=== PATIENT | male | born 1970 | race Two or more races ===

== ENCOUNTER 2025-10-18 15:35 | Inpatient (IN) | payer MEDICAID, OTHER ==
[~2025-10-18] VITALS: Ht 172.7 cm; Wt 98.4 kg
[2025-10-18 16:19] LABS: Hematocrit 40.7 % (41.0-53.0); Hemoglobin 13.6 g/dL (13.5-17.5); Mean Corpuscular Hemoglobin 27.4 pg (28.0-32.0); Mean Corpuscular Volume 82.4 fL (80.0-100.0); Nucleated Red Blood Cells % 0.1 %
[2025-10-18 16:23] LABS: Chloride 102 mmol/L (98-107); Potassium 4.3 mmol/L (3.5-5.1); Sodium 137 mmol/L (136-145)
[2025-10-18 16:24] LABS: Anion Gap 10 (5-15); Calcium 10.0 mg/dL (8.7-10.4); Carbon Dioxide 25 mmol/L (20-31)
[2025-10-18 16:29] LABS: BUN/Creatinine Ratio 17.3 (10.0-20.0)
[2025-10-18 16:31] LABS: Urine Protein, UAD Negative (Negative)
[2025-10-18 16:31] LABS: Blood Urea Nitrogen 23 mg/dL (9-23); Glucose 299 mg/dL (74-106)
--- NOTE | 2025-10-18 16:45 | ED.PDOC ---
HPI (NEURO) HPI Comments 85-year-old male with a primary history of hypertension and CVA (1 month ago), presents to the ED for chief complaint dizziness associated with blurred vision that started 30 minutes prior to ER arrival. Patient reports that he was playing with his granddaughter when his vision became blurred. Upon ED arrival, patient is blood pressure 191/123. He denies any nausea, vomiting, fever, chills, chest pain, or shortness of breath. Patient took his blood pressure medication around 3:00 p.m. today. Patient has no new onset of focal deficit, or difficulty ambulating. Patient is alert and oriented x4 does have some slurred speech given recent CVA. Chief Complaint: Dizziness Time Seen by MD: 16:29 Reviewed Notes: Nurses Notes, Medications, Allergies Information Source: Patient Mode of Arrival: Ambulatory Severity: Moderate Dizziness/Weakness Severity: Does not affect activitie Timing: Hours Duration: Since onset Onset: At rest Circumstances: Spontaneous Symptoms: Change of vision History of: CVA, Hypertension Modifying factors: Nothing Associated Signs and Symptoms: Blurred Vision Past Medical History PAST MEDICAL HISTORY: CVA, HTN Surgical History: Denies all surgeries Family History Family History: Reviewed,noncontributory to illness Social History Smoker: Non-Smoker Alcohol: Denies ETOH Use Drugs: Denies Drug Use Lives In: Home Constitutional: denies: chills, diaphoresis, fatigue, fever, malaise, sweats, weakness, others EENTM: reports: blurred vision; denies: double vision, ear bleeding, ear discharge, ear drainage, ear pain, ear ringing, eye pain, eye redness, hearing loss, mouth pain, mouth swelling, nasal discharge, nose bleeding, nose congestion, nose pain, photophobia, tearing, throat pain, throat swelling, voice changes, others Respiratory: denies: cough, hemoptysis, orthopnea, SOB at rest, shortness of breath, SOB with excertion, stridor, wheezing, others Cardiovascular: denies: chest pain, dizzy spells, diaphoresis, Dyspnea on exertion, edema, irregular heart beat, left arm pain, lightheadedness, palpitations, PND, syncope, others Gastrointestinal: denies: abdomen distended, abdominal pain, blood streaked bowels, constipated, diarrhea, dysphagia, difficulty swallowing, hematemesis, melena, nausea, poor appetite, poor fluid intake, rectal bleeding, rectal pain, vomiting, others Genitourinary: denies: burning, dysuria, flank pain, frequency, hematuria, incontinence, penile discharge, penile sore, pain, testicle pain, testicle swelling, urgency, others Neurological: reports: dizziness, pre-existing deficit; denies: fainting, headache, left sided numbness, left sided weakness, numbness, paresthesia, right sided numbness, right sided weakness, seizure, speech problems, tingling, tremors, weakness, others Musculoskeletal: denies: back pain, gout, joint pain, joint swelling, muscle pain, muscle stiffness, neck pain, others Integumetry: denies: bruises, change in color, change in hair/nails, dryness, laceration, lesions, lumps, rash, wounds, others Allergic/Immunocompromised: denies: Difficulty Healing, Frequent Infections, Hives, Itching, others Hematologic/Lymphatic: denies: anemia, blood clots, easy bleeding, easy bruising, swollen glands, others Endocrine: denies: excessive hunger, excessive sweating, excessive thirst, excessive urination, flushing, intolerance to cold, intolerance to heat, unexplained weight gain, unexplained weight loss, others Psychiatric: denies: anxiety, bipolar disorder, depression, hopeless, panic disorder, schizophrenia, sleepless, suicidal, others All Other Systems: Reviewed and Negative Physical Exam General Appearance: Moderate Distress HEENT: Normal ENT Inspection, Pharynx Normal, TMs Normal Neck: Full Range of Motion, Non-Tender, Normal, Normal Inspection Respiratory: Chest Non-Tender, Lungs Clear, No Accessory Muscle Use, No Respi ratory Distress, Normal Breath Sounds Cardiovascular: No Edema, No JVD, No Murmur, No Gallop, Normal Peripheral Pulses, Regular Rate/Rhythm Breast Exam: Deferred Gastrointestinal: No Organomegaly, Non Tender, No Pulsatile Mass, Normal Bowel Sounds, Soft Genitalia: Deferred Pelvic: Deferred Rectal: Deferred Extremities: No calf tenderness, Normal capillary refill, Normal inspection, Normal range of motion, Non-tender, No pedal edema Musculoskeletal : Apperance: Normal Neurologic: Alert, No Motor Deficits, Normal Affect, Normal Mood, No Sensory Deficits, Speech Problem Cerebellar Function: Normal Reflexes: NOT DONE Skin: Dry, Normal Color, Warm Peripheral Pulses: 3+ Radial (R), 3+ Radial (L) Lymphatic: No Adenopathy Was a procedure done? Was a procedure done?: No Differential Diagnosis (SZ) Seizure: Psychogenic Seizure, Closed Head Injury, CVA/TIA CVA: CVA, Electrolyte Imbalance, TIA General Weakness: Dehydration, Electrolyte imbalance, Guillain-[place], Meniere's disease, TIA, Vertigo: central, Vertigo: peripheral, Vestibular neuronitis X-Ray, Labs, Meds, VS Vital Signs Date Time Temp Pulse Resp B/P (MAP) Pulse Ox O2 Delivery O2 Flow Rate FiO2 10/18/25 17:17 183/117 10/18/25 17:04 100.5 106 16 183/117 (139) 95 100.5 10/18/25 17:04 106 16 95 Room Air 10/18/25 15:51 104 10/18/25 15:39 98.0 109 20 191/123 97 98.0 Lab Test 10/18/25 16:20 10/18/25 15:34 Range/Units Urine Color Light-yellow Yellow Urine Clarity Clear Clear Urine pH 5.0 5.0-9.0 Urine Specific [place] 1.032 1.001-1.035 Urine Protein Negative Negative Urine Ketones Negative Negative Urine Blood Negative Negative /uL Urine Nitrite Negative Negative Urine Bilirubin Negative Negative Urine Urobilinogen Normal Negative mg/dL Urine Leukocyte Esterase Negative Negative /uL Urine RBC None seen 0 - 3 /hpf Urine Microscopic WBC 1 0-3 /HPF Urine Squamous Epithelial Cells None seen <5 /hpf Urine Bacteria None seen None Seen /hpf Urine Glucose 4+ H Normal mg/dL White Blood Count 7.9 4.4-10.8 10^3/uL Red Blood Count 4.94 4.5-5.90 10^6/uL Hemoglobin 13.6 13.5-17.5 g/dL Hematocrit 40.7 L 41.0-53.0 % Mean Corpuscular Volume 82.4 80.0-100.0 fL Mean Corpuscular Hemoglobin 27.4 L 28.0-32.0 pg Mean Corpuscular Hemoglobin Concent 33.3 32.0-36.0 g/dL Red Cell Distribution Width 13.8 11.8-14.3 % Platelet Count 405 140-450 10^3/uL Mean Platelet Volume 8.3 6.9-10.8 fL Neutrophils (%) (Auto) 70.4 37.0-80.0 % Lymphocytes (%) (Auto) 19.6 10.0-50.0 % Monocytes (%) (Auto) 6.6 0.0-12.0 % Eosinophils (%) (Auto) 2.7 0.0-7.0 % Basophils (%) (Auto) 0.7 0.0-2.0 % Neutrophils # (Auto) 5.5 1.6-8.6 10 ^3/uL Lymphocytes # (Auto) 1.5 0.4-5.4 10 ^3/uL Monocytes # (Auto) 0.5 0-1.3 10 ^3/uL Eosinophils # (Auto) 0.2 0-0.8 10 ^3/uL Basophils # (Auto) 0.1 0-0.2 10 ^3/uL Nucleated Red Blood Cells 0.1 % Sodium Level 137 136-145 mmol/L Potassium Level 4.3 3.5-5.1 mmol/L Chloride Level 102 98-107 mmol/L Carbon Dioxide Level 25 20-31 mmol/L Anion Gap 10 5-15 Blood Urea Nitrogen 23 9-23 mg/dL Creatinine 1.33 H 0.700-1.30 mg/dL Glomerular Filtration Rate Calc 62 >90 mL/min BUN/Creatinine Ratio 17.3 10.0-20.0 Serum Glucose 299 H 74-106 mg/dL Calcium Level 10.0 8.7-10.4 mg/dL Troponin I High Sensitivity 16 </=54 ng/L Current Medications Medications (Trade) Dose Ordered Sig/Christina Route Start Time Stop Time Status Last Admin Clonidine HCl (Catapres Tablet) 0.2 mg ONCE ONCE PO 10/18/25 16:00 10/18/25 16:01 DC 10/18/25 17:17 Patient alert. Complaining of headache. History of stroke. Blood sugar elevated. Answering questions. Does have slurred speech. Was given clonidine. Blood pressure continues to be high. Explained to the patient he will be admitted to follow in his neurological status. Continue monitoring. Time of 1ST Reevaluation: 16:45 Reevaluation 1ST: Unchanged Patient Education/Counseling: Diagnosis, Treatment, Prognosis Family Education/Counseling: Diagnosis, Treatment, Prognosis Departure 1 Departure Time of Disposition: 17:22 Impression: Primary Impression: Hypertensive emergency Additional Impression: TIA (transient ischemic attack) Disposition: 09 ADMITTED INPATIENT Admit to: Med Surg Condition: Guarded Critical Care Note Critical Care Time?: No Stability Stability form required: No I personally scribed for SHELBY MUNROE MD ([email or web address]) on 10/18/25 at 16:45. Electronically submitted by Chelsy Brito ([facility]). SHELBY MUNROE MD Oct 18, 2025 16:45
--- NOTE | 2025-10-18 18:02 | DVH ---
PROCEDURE: CT HEAD WITHOUT CONTRAST Study Date and Requested Time: 10/18/2025 05:23 PM History: cva COMPARISON: None Dose: CTDI: 53.69 mGy DLP: 968.15 mGycm TECHNIQUE: Multiplanar images obtained through the brain without intravenous contrast. FINDINGS: Normal brain volume and formation. [id number] chronic small-vessel ischemic changes. Left caudate head , right parietal lobe, right occipital lobe, left mesial frontal lobe and right frontal lobe nonspecific Focus of calcification. No hemorrhages, masses, mass effect, midline shift, herniation or cytotoxic edema following a large vascular territory. No intra-axial or extra-axial fluid collections. No evidence of hydrocephalus. The basal cisterns are patent. The pituitary gland, sella and parasellar regions are unremarkable. The cerebellar tonsils are in normal position. The cerebellum is unremarkable. The orbits and globes are unremarkable. Mild right maxillary sinus mucoperiosteal thickening. The remainder of the paranasal sinuses and mastoids are clear. There are no worrisome calvarial lesions. Multiple left maxillary periapical dental cysts. Nonspecific Focal 1.4 x 0.5 cm right suboccipital subcu taneous fat region thickening abutting the skin. IMPRESSION: No evidence of acute intracranial abnormality. If symptoms persist, consider MRI for further evaluation.
[2025-10-18] MEDS: SODIUM CHLORIDE 0.9% 500 ML IV ONE (21:30)
[2025-10-18] MEDS ORDERED: ASPirin-EC 81 mg tab PO ONE (21:30)
[2025-10-18 21:59] LABS: Alanine Aminotransferase 39 U/L (7-40); Alkaline Phosphatase 98 U/L (46-116); Total Protein 7.5 g/dL (5.7-8.2)
[2025-10-18] MEDS: IOHEXOL 350 MG/ML 100ML IJ ONE (21:59)
[2025-10-18 22:00] LABS: Albumin 4.8 g/dL (3.2-4.8); Bilirubin, Total 0.4 mg/dL (0.2-1.0)
[2025-10-18 22:04] LABS: Amphetamine Screen, Urine Neg (NEGATIVE); Barbiturate Scree,Urine Neg (NEGATIVE); Benzodiazephine Screen, Urine Neg (NEGATIVE); Cannabinoid Screen, Urine Neg (NEGATIVE); Cocaine Screen, Urine Neg (NEGATIVE); Opiate Scree,Urine Neg (NEGATIVE); Phencyclidine Screen, Urine Neg (NEGATIVE)
[2025-10-18 22:04] LABS: Bilirubin, Direct < 0.1 mg/dL (<0.3)
--- NOTE | 2025-10-18 23:01 | DVH ---
CT ANGIO HEAD/Neck INDICATION: right sided weakness, slurred speech, blurred vision EXAM DATE: 10/18/2025 10:00 PM COMPARISON: CT HEAD WITHOUT CONTRAST on DOS: 10/18/25 RADIATION DOSE: CTDIvol: 28.47 mGy, DLP: 957.49 mGy*cm PROCEDURE: CT angiogram images were obtained of the head and neck. Coronal and sagittal reformatted images were created as well as 3D and/or MIP reconstructions. All CT scans at this medical facility are performed using dose modulation techniques as appropriate to a performed exam including the following: Automated exposure control was utilized; adjustment of the MA and/or KV according to patient size; and use of iterative reconstruction technique. FINDINGS: There is multifocal severe stenosis of the basilar artery. There is severe stenosis of the P1 segment of the left posterior cerebral artery. There is severe stenosis of the distal left M1 segment of the middle cerebral artery. There is multifocal mild atherosclerotic narrowing of the Additional intra cranial vasculature. There is no aneurysm. The visualized thoracic aortic arch and proximal great vessels are unremarkable. There is mild noncalcified plaque of the origin of the left proximal internal carotid artery without hemodynamically significant stenosis. The left common, internal and external carotid arteries are otherwise unremarkable. There is calcified and noncalcified plaque about the right carotid bulb. Calcified and noncalcifiedplaque at the origin of the right proximal internal carotid artery contributes to approximately 60% stenosis. The right common, internal and external carotid arteries are otherwise unremarkable. The cervical segments of the right and left vertebral arteries are within normal limits. The limited visualized lung apices are clear. The surrounding soft tissues and osseous structures are otherwise unremarkable. IMPRESSION: 1. Multifocal severe stenosis of the basilar artery. 2. Severe stenosis of the distal left M1 segment of the middle cerebral artery. 3. Severe stenosis of the left P1 segment of the posterior cerebral artery. 4. Additional mild multifocal atherosclerotic narrowing of the intracranial vasculature. 5. Moderate stenosis of the right proximal internal carotid artery. Findings discussed with SHELBY MUNROE at 10/18/2025 10:58 PM, and acknowledged receipt and understanding of the findings.
[2025-10-19] VITALS (8 sets, daily range): BP systolic 116–183; BP diastolic 70–108; PULSE 62–86; RESP 14–18; TEMP 97.9–98.7; O2SAT 96–99
[2025-10-19] MEDS: SODIUM CHLORIDE 0.9% 1,000 ML IV ONE
--- NOTE | 2025-10-19 00:21 | BSKYNEURO ---
[facility] Note # Demographics Consult Type: General Neurology Patient Location: Emergency Room First Name: Kei Last Name: Jason Date of : 1970 Age: 55 Gender: Male Facility: [facility] Time of Initial Page (): 10/18/2025 23:58 First Contact with Site (): 10/18/2025 23:58 # HPI Chief Complaint: - dizziness History: 55-year-old male with a history of stroke diagnosed approximately one month ago who presents with an episode of dizziness. He had been prescribed aspirin and Plavix for 21 days following his stroke diagnosis in August, but ran out of his medications 3-4 days prior to this presentation. The patient experienced an episode of dizziness at home that was witnessed by others around 3 PM, prompting his presentation to the emergency department. Upon initial arrival, he was reportedly fine with no weakness, speech abnormalities, dysphagia, or vision abnormalities, and was able to walk normally. His blood pressure was signific antly elevated at 191/123 mmHg on presentation. After receiving clonidine in the emergency department, his blood pressure decreased to 160/120 mmHg. Following the blood pressure reduction, the patient developed right-sided weakness and slurred speech that were not present on initial presentation. This occurred around 5 PM. Head and neck CTA revealed multifocal severe stenosis of basilar artery, severe stenosis of the distal left M1 segment of the middle cerebral artery, severe stenosis of the left P1 segment of the posterior cerebral artery, multifocal atherosclerotic narrowing of the intracranial vasculature, moderate stenosis (ap proximately 60%) in the right proximal internal carotid artery. Last Known Normal: - 3 PM # Scores Time of exam and NIHSS (): 10/19/2025 00:13 Level of Consciousness 1a: [0] = Alert; keenly responsive LOC Questions 1b: [0] = Answers both questions correctly LOC Commands 1c: [0] = Performs both tasks correctly Best Gaze 2: [0] = Normal Visual 3: [0] = No visual loss Facial Palsy 4: [0] = Normal symmetrical movements Motor Arm Left 5a: [0] = No drift Motor Arm Right 5b: [1] = Drift Motor Leg Left 6a: [0] = No drift Motor Leg Right 6b: [1] = Drift Limb Ataxia 7: [1] = Present in one limb Sensory 8: [0] = Normal Best Language 9: [0] = No aphasia Dysarthria 10: [1] = [id number]-[id number] dysarthria Extinction and Inattention 11: [0] = No abnormality NIHSS Total: 4 # ROS Additional: - complete review of systems otherwise negative # Data Time Head CT personally read by me (Will Time): 10/19/2025 00:[address]: - no bleed - per radiologist read Time CTA personally reviewed by me ( Time): 10/19/2025 00:05 CTA Head: - no large vessel occlusion - per radiologist read 1. Multi-focal severe stenosis of the basilar artery 2. Severe stenosis of the left m1 segment of the MCA 3. Severe stenosis of the left P1 segment of the [employer]GER # Assessment Impression: - Ischemic Stroke (Acute) # Plan Thrombolytic/Intervention: NOT IV Thrombolysis or IA Intervention candidate Thrombolytic Exclusion (< 3 hour window): - stroke within 3 months Intraarterial Exclusion: - no large vessel occlusion (LVO) Target Blood Pressure: - SBP < 220 - DBP < 120 Labs: - hemoglobin A1c - lipid panel Imaging: (urgency: routine): - MRI Brain without contrast Diagnostic Test: - echo without bubble study Therapy/Evaluation: - NPO until swallow evaluation - PT/OT evaluation - speech/swallow consultation Medication: - start statin with goal of LDL < 70 - aspirin 325 mg PO daily DVT Prophylaxis: - chemical DVT prophylaxis Other: - If patient has any neurological deterioration please call me back immediately - permissive hypertension - telemetry monitoring - I have discussed my recommendations with the referring provider Disposition: admit # Logistics Attestation of consult completion: The patient is located at: [facility]. Facility staff participated in the visit. I performed this telemedicine visit from my offsite office utilizing interactive 2 way audio and visual telecommunication technology at the request of the onsite emergency room provider. Total time spent in telemedicine encounter: I spent 15 minutes reviewing clinical data and/or imaging, obtaining history, examining the patient, communicating with the onsite care team, and in preparation of this report. # Demographics First Name: Kei Last Name: Gomez Facility: [facility] Yes JEFF DOWNS MD Oct 19, 2025 00:21
[2025-10-19] MEDS: ASPirin-EC 325mg tab PO ONE (02:56)
[2025-10-19] MEDS: ATORVASTATIN 20 MG TAB PO ONE (02:56)
--- NOTE | 2025-10-19 04:48 | DVHHPRES ---
History of Present Illness Resident Creating Document: JHAsifJRENE WoodardANNA RESIDENT History of Present Illness Patient is a 55-year-old male who came to the hospital with a chief complaint of dizziness that happened in the afternoon today for a few minutes. Patient was brought to the ER for further evaluation. As per the daughter patient was diagnosed with multiple strokes in August following which he was discharged home on aspirin, Plavix for 21 days and then aspirin along with atorvastatin but apparently he ran out of medications in the last 3-4 days. On arrival to the hospital, patient did not have any weakness, speech abnormalities, dysphagia or vision abnormality and was able to walk normally, patient's blood pressure was noted to be 191/123 mmHg following which he was given clonidine 0.2 mg in the ER decreasing his blood pressure to the 128/61 in about 3 hours following which the patient has started to have weakness on the right side, dysarthria. Head CT showed no acute intracranial abnormality. On examination patient was found to have right-sided weakness with a dysarthria following which head and neck CTA which showed multifocal severe stenosis of basilar artery, severe stenosis of the distal left M1 segment of the middle cerebral artery, severe stenosis of the left P1 segment of the posterior cerebral artery, multifocal atherosclerotic narrowing of the intracranial vasculature, moderate stenosis (approximately 60%) in the right proximal internal carotid artery. Tele neuro consultation was done and patient admitted for further evaluation with MRI to be done tomorrow. Past medical history: CVA, hypertension, hyperlipidemia Surgical history: Denies Social history: Patient drinks alcohol, denies smoking or drug use Home medications: Aspirin, atorvastatin, losartan, hydrochlorothiazide (noncompliant) Review of Systems Review of Systems Patient has dysarthria, right-sided weakness, blurred vision Denies chest pain, shortness of breath Allergies: Coded Allergies: NO KNOWN ALLERGIES (Unverified , 10/18/25) Medications Current Medications Medications Dose Ordered Sig/Christina Route Start Time Stop Time Status Last Admin Dose Admin Atorvastatin Calcium 40 mg HS PO 10/19/25 22:00 Aspirin 325 mg DAILY PO 10/20/25 10:00 Exam Vital Signs Vital Signs Date Time Temp Pulse Resp B/P (MAP) Pulse Ox O2 Delivery O2 Flow Rate FiO2 10/19/25 00:31 97.9 73 16 116/70 (85) 99 97.9 10/19/25 00:31 Room Air* 0 21 Exam Constipation: Patient was alert and oriented to time, place and person and does not appear to be in acute distress Gen - no pallor, no icterus, no cyanosis, no clubbing, no LAD, no edema . Skin - Patients skin is warm and dry. HEENT - normocephalic, atraumatic, moist mucous membranes. Neck - full ROM, no LAD, no JVD Pulmonary - B/L equal air entry with no wheezing or rales cardiovascular - normal S1,S2 heard. no murmurs heard. GI - soft abdomen without tenderness to palpation. no hepatospleenomegaly. Bowel sounds normoactive Neurological - Sensory: Bilateral sensation to temperature, temperature, position intact Motor: Right upper and lower extremity strength 3/5, left upper and lower extremity strength 5/5 Dysarthria present Cranial nerves CN 2- visual acuity decreased, questionable visual field abnormality CN 3,4,6- extraocular movements normal CN 5- normal facial sensation and jaw strength CN 7- normal facial muscle strength CN 8- no hearing loss CN 9,10- uvula central, no difficulty swallowing CN 12- tongue midline Labs/Xrays Labs Test 10/18/25 16:20 10/18/25 15:34 Range/Units Urine Color Light-yellow Yellow Urine Clarity Clear Clear Urine pH 5.0 5.0-9.0 Urine Specific [place] 1.032 1.001-1.035 Urine Protein Negative Negative Urine Ketones Negative Negative Urine Blood Negative Negative /uL Urine Nitrite Negative Negative Urine Bilirubin Negative Negative Urine Urobilinogen Normal Negative mg/dL Urine Leukocyte Esterase Negative Negative /uL Urine RBC None seen 0 - 3 /hpf Urine Microscopic WBC 1 0-3 /HPF Urine Squamous Epithelial Cells None seen <5 /hpf Urine Bacteria None seen None Seen /hpf Urine Glucose 4+ H Normal mg/dL Urine Opiates Screen Neg NEGATIVE Urine Fentanyl Screen Neg NEGATIVE Urine Barbiturates Screen Neg NEGATIVE Urine Phencyclidine Screen Neg NEGATIVE Urine Amphetamines Screen Neg NEGATIVE Urine Benzodiazepines Screen Neg NEGATIVE Urine Cocaine Screen Neg NEGATIVE Urine Cannabinoids Screen Neg NEGATIVE White Blood Count 7.9 4.4-10.8 10^3/uL Red Blood Count 4.94 4.5-5.90 10^6/uL Hemoglobin 13.6 13.5-17.5 g/dL Hematocrit 40.7 L 41.0-53.0 % Mean Corpuscular Volume 82.4 80.0-100.0 fL Mean Corpuscular Hemoglobin 27.4 L 28.0-32.0 pg Mean Corpuscular Hemoglobin Concent 33.3 32.0-36.0 g/dL Red Cell Distribution Width 13.8 11.8-14.3 % Platelet Count 405 140-450 10^3/uL Mean Platelet Volume 8.3 6.9-10.8 fL Neutrophils (%) (Auto) 70.4 37.0-80.0 % Lymphocytes (%) (Auto) 19.6 10.0-50.0 % Monocytes (%) (Auto) 6.6 0.0-12.0 % Eosinophils (%) (Auto) 2.7 0.0-7.0 % Basophils (%) (Auto) 0.7 0.0-2.0 % Neutrophils # (Auto) 5.5 1.6-8.6 10 ^3/uL Lymphocytes # (Auto) 1.5 0.4-5.4 10 ^3/uL Monocytes # (Auto) 0.5 0-1.3 10 ^3/uL Eosinophils # (Auto) 0.2 0-0.8 10 ^3/uL Basophils # (Auto) 0.1 0-0.2 10 ^3/uL Nucleated Red Blood Cells 0.1 % Sodium Level 137 136-145 mmol/L Potassium Level 4.3 3.5-5.1 mmol/L Chloride Level 102 98-107 mmol/L Carbon Dioxide Level 25 20-31 mmol/L Anion Gap 10 5-15 Blood Urea Nitrogen 23 9-23 mg/dL Creatinine 1.33 H 0.700-1.30 mg/dL Glomerular Filtration Rate Calc 62 >90 mL/min BUN/Creatinine Ratio 17.3 10.0-20.0 Serum Glucose 299 H 74-106 mg/dL Calcium Level 10.0 8.7-10.4 mg/dL Total Bilirubin 0.4 0.2-1.0 mg/dL Direct Bilirubin < 0.1 <0.3 mg/dL Aspartate Amino Transferase (AST) 20 13-40 U/L Alanine Aminotransferase (ALT) 39 7-40 U/L Alkaline Phosphatase 98 46-116 U/L Troponin I High Sensitivity 16 </=54 ng/L Total Protein 7.5 5.7-8.2 g/dL Albumin 4.8 3.2-4.8 g/dL SEPSIS Sepsis Screen Date sepsis recognized/suspect: Oct 18, 2025 Time Sepsis recognized/suspect: 2109 Recent Procedure: No On Antibiotic Therapy: No Respiratory Rate >20: No Heart Rate >90: No Temp<36 C (96.8 F) or >38.3 C: No SBP <90 or MAP <65 mmHG: No New Acute Mental Status Change: No Is the patient on CPAP, BIPAP,: No Physician Orders Admit (10/18/25:) Oxygen By Nasal Cannula (10/18/25:) Stat Ekg For Chest Pain (10/18/25:) Notify Md Of Changes From Base (10/18/25:) Angio Head/Neck (10/18/25:) Complete Blood Count (10/19/25 04:00) Basic Metabolic Panel (10/19/25 04:00) * Swallow Request (10/18/25:) Echo 2d Mode Cardiac Dop (10/18/25 21:27) Atorvastatin (Lipitor) (10/19/25 22:00) [facility] Consult (10/18/25 ) Npo Except For Medications (10/19/25 00:41) Npo (Nothing By Mouth) Diet (10/19/25 Breakfast) Aspirin Enteric Coated Tablet (Ecotrin E (10/20/25 10:00) Echo 2d Mode Cardiac Dop (10/19/25 04:29) Brain Head Wo Contrast (10/19/25 04:29) Vital Signs Date Time Temp Pulse Resp B/P (MAP) Pulse Ox O2 Delivery O2 Flow Rate FiO2 10/19/25 00:31 97.9 73 16 116/70 (85) 99 97.9 10/19/25 00:31 Room Air* 0 21 10/18/25 21:10 98.6 85 16 128/61 (83) 95 98.6 Medications Medications Dose Ordered Sig/Christina Route Start Time Stop Time Status Last Admin Dose Admin Aspirin 325 mg ONCE ONCE PO 10/19/25 00:45 10/19/25 00:50 DC 10/19/25 02:56 325 MG Atorvastatin Calcium 40 mg ONCE ONCE PO 10/19/25 00:00 10/19/25 00:02 DC 10/19/25 02:56 40 MG Iohexol 35,000 mg STK-MED ONCE IJ 10/18/25 21:59 10/18/25 21:57 DC 10/18/25 21:59 35,000 MG Sodium Chloride 500 ml @ 500 mls/hr Q1H ONCE IV 10/18/25 21:30 10/18/25 22:29 DC 10/18/25 21:30 500 MLS/HR Assessment/Plan Assessment/Plan Acute ischemic stroke Multifocal atherosclerotic narrowing of intracranial vasculature Hypertensive emergency OUMAR on CKD likely due to VMN ?Type 2 diabetes mellitus with hyperglycemia Plan - stat blue maria [place] Neurology consultation done, recommended MRI, aspirin 325 mg daily, high-dose statin daily - permissive hypertension with target blood pressure SBP less than 220/DBP less than 120 for the next 48 hours - MRI brain pending - echo pending - swallow evaluation - lipid panel, HbA1c pending - IV fluids Goals of care discussed with the patient and her daughter. Full code Time spent: 37 minutes Plan discussed with Dr. Rea Plan discussed with: Patient, Daughter My Orders Orders - CHRIS FLORES RESIDENT Procedure Category Date Status Time Admit ADMIT 10/18/25 Transmitted 21:27 Oxygen By Nasal RT 10/18/25 Transmitted Cannula 21:27 Stat Ekg For Chest ARCENIO 10/18/25 In Process Pain 21:27 Notify Of Changes ARCENIO 10/18/25 In Process From Base 21:27 Angio Head/Neck CT 10/18/25 Resulted 21:27 Complete Blood Count LAB 10/19/25 Logged 04:00 Basic Metabolic Panel LAB 10/19/25 Logged 04:00 * Swallow Request ST 10/18/25 Transmitted 21:27 Echo 2d Mode Cardiac US 10/18/25 Logged DOP 21:27 Atorvastatin (Lipitor) PHA 10/19/25 In Process 22:00 [facility] Consult CONS-TELE 10/18/25 Logged Npo Except For ARCENIO 10/19/25 In Process Medications 00:41 Npo (Nothing By DIET 10/19/25 Transmitted Mouth) Diet Breakfast Aspirin Enteric PHA 10/20/25 In Process Coated Tablet 10:00 Echo 2d Mode Cardiac US 10/19/25 Verified DOP 04:29 Brain Head Wo Contrast MRI 10/19/25 Verified 04:29 Visit Coding STANDARD RES Billing Provider: CHANTELLE REA MD Date of Service if different f: Oct 18, 2025 Common Visit Codes: [id number] INP/OBS CARE (HIGH) Secondary Visit Codes: [id number] CARE PLAN 30 MINUTES CHRIS FLORES RESIDENT Oct 19, 2025 04:48
[2025-10-19] MEDS ORDERED: LOSA-533 PO (05:02)
[2025-10-19] MEDS ORDERED: AMLO1TAB22 PO (05:02)
[2025-10-19] MEDS ORDERED: CLOP75TA70 PO (05:02)
[2025-10-19] MEDS ORDERED: ATOR-507 PO (05:02)
[2025-10-19] MEDS ORDERED: ASPI1TAB20 PO (05:02)
[2025-10-19] MEDS ORDERED: HYDR12.59 PO (05:02)
[2025-10-19] MEDS ORDERED: DEXTROSE (50%) 50ML SYRG IV PRN ×2 (05:15→21:45)
[2025-10-19] MEDS ORDERED: ONDANSETRON HCL 4 MG/2 ML VIAL IV PRN ×2 (05:15→21:45)
[2025-10-19] MEDS ORDERED: ACETAMINOPHEN 325 MG TAB PO PRN ×2 (05:15→21:45)
[2025-10-19] MEDS: InsuLIN REG 1unit/0.01ml Soln (100units/ml) SC SCH (06:00)
[2025-10-19] MEDS: ACCU-CHEK COMFORT CURVE STRIP VI SCH (06:00)
[2025-10-19] MEDS ORDERED: ASPirin-EC 81 mg tab PO SCH (10:00)
[2025-10-19 10:29] LABS: Hematocrit 40.8 % (41.0-53.0); Hemoglobin 13.5 g/dL (13.5-17.5); Mean Corpuscular Hemoglobin 27.2 pg (28.0-32.0); Mean Corpuscular Volume 82.2 fL (80.0-100.0); Nucleated Red Blood Cells % 0.1 %
[2025-10-19 10:39] LABS: Chloride 104 mmol/L (98-107); Potassium 3.9 mmol/L (3.5-5.1); Sodium 140 mmol/L (136-145)
[2025-10-19 10:40] LABS: Anion Gap 10 (5-15); Carbon Dioxide 26 mmol/L (20-31)
[2025-10-19 10:41] LABS: Calcium 9.7 mg/dL (8.7-10.4)
[2025-10-19 10:46] LABS: BUN/Creatinine Ratio 12.7 (10.0-20.0); Blood Urea Nitrogen 17 mg/dL (9-23); Glucose 149 mg/dL (74-106)
[2025-10-19 10:50] LABS: HDL Cholesterol 41 mg/dL (40-59); Triglycerides 228 mg/dL (< 150)
[2025-10-19 10:51] LABS: Cholesterol 263 mg/dL (< 200)
[2025-10-19] MEDS: PANTOPRAZOLE 40 MG/10 ML VIAL INJ IV SCH (13:01)
[2025-10-19] MEDS: ENOXAPARIN SOD 40 MG/0.4 ML SYRINGE SC SCH (13:01)
--- NOTE | 2025-10-19 16:48 | DVHSR ---
APPROVED REPORT EXAM: LIMITED Two-dimensional and M-mode echocardiogram with Doppler and color Doppler. Blood Pressure: 131/72 mmHg RISK FACTORS Height: 5' 8", Weight: 224 DIMENSIONS LVDd 4.6 (3.8-5.7cm) LA (2D) 4.0 (1.9-4.0cm) Aortic Root 3.3 (2.0-3.7cm) LVDs 3.3 (2.5-4.0cm) LA (MM) (1.9-4.0cm) Aortic Cusp Exc 1.5 (1.5-2.0cm) EF (%) 53.0 (55-70%) Rt. Atrium 4.2 (1.9-4.0cm) Asc. Aorta cm IVSd 1.0 (0.7-1.1cm) RV (D) (1.8-2.4cm) PWd 1.0 (0.7-1.1cm) Mitral Valve Mitral Mitral Stenosis E wave 0.70m/s MV Mean GR. mmHg A wave 1.20m/s MV Peak GR. mmHg E/A ratio 0.6 2D MVA cm2 Aortic Valve Aortic Valve Aortic Stenosis V1 1.00m/s AO Mean GR. 6mmHg V2 1.50m/s AO Peak GR. 10mmHg LVOT Diameter 2.2 (1.8-2.4cm) Doppler [place] 2.53cm2 Pulmonic Valve V2 0.70m/s Other Information Quality : Technically Limited Rhythm : Technically limited study due to body habitus, patient position, patient moving due to ALOC. Conclusion LV EF IS 55% AND IS NORMAL SLIGHTLY DILATED LA SLIGHTLY DILATED RV NORMAL VALVES NO EFFUSION
--- NOTE | 2025-10-19 17:32 | DVHPN2 ---
Subjective Comfortable in bed. Sleeping but easily arousable. No complaints at present. Changes from previous H/P or p: No Changes Objective Vitals Vital Signs Date Time Temp Pulse Resp B/P (MAP) Pulse Ox O2 Delivery O2 Flow Rate FiO2 10/19/25 17:00 97.9 78 18 183/108 (133) 98 97.9 10/19/25 08:00 Room Air* 0 21 Intake/Output Intake and Output 10/19/25 07:00 Intake Total 0 ml Balance 0 ml Intake Oral 0 ml Exam Sleeping but easily arousable. Poor historian. HEENT neck supple no JVD pupils equal round reactive. Heart regular rate and rhythm S1-S2. Lungs fair air movement poor inspiratory effort without wheezing. Abdomen obese soft positive bowel sounds. Extremities no edema positive pulses. Medications Current Medications Medications Dose Ordered Sig/Christina Route Start Time Stop Time Status Last Admin Dose Admin Atorvastatin Calcium 40 mg HS PO 10/19/25 22:00 Aspirin 325 mg DAILY PO 10/20/25 10:00 Pantoprazole Sodium 40 mg DAILY IV 10/19/25 10:00 10/19/25 13:01 40 MG Ondansetron HCl 4 mg Q6HPRN PRN IV 10/19/25 05:15 Acetaminophen 650 mg Q6HP PRN PO 10/19/25 05:15 Enoxaparin Sodium 40 mg DAILY SC 10/19/25 10:00 10/19/25 13:01 40 MG Diagnostic Test (Pha) 1 strip Q6HR 10/19/25 06:00 10/19/25 12:00 1 STRIP Insulin Human Regular Q6HR SC 10/19/25 06:00 10/19/25 12:00 186 UNITS Dextrose 50 ml UD PRN IV 10/19/25 05:15 Laboratory Results Laboratory Tests 10/19/25 10:09 Chemistry Test 10/19/25 10:09 Calcium Level 9.7 mg/dL (8.7-10.4) Lipid panel Test 10/19/25 10:09 Cholesterol Level 263 mg/dL (< 200) H HDL Cholesterol 41 mg/dL (40-59) Triglycerides Level 228 mg/dL (< 150) H HgA1c, TSH Test 10/19/25 10:09 Hemoglobin A1c 7.8 % A1C (<5.7) H Urinalysis Test 10/18/25 16:20 Urine Color Light-yellow (Yellow) Urine Clarity Clear (Clear) Urine pH 5.0 (5.0-9.0) Urine Specific [place] 1.032 (1.001-1.035) Urine Protein Negative (Negative) Urine Ketones Negative (Negative) Urine Blood Negative /uL (Negative) Urine Nitrite Negative (Negative) Urine Bilirubin Negative (Negative) Urine Urobilinogen Normal mg/dL (Negative) Urine Leukocyte Esterase Negative /uL (Negative) Urine RBC None seen /hpf (0 - 3) Urine Microscopic WBC 1 /HPF (0-3) Urine Squamous Epithelial Cells None seen /hpf (<5) Urine Bacteria None seen /hpf (None Seen) Urine Glucose 4+ mg/dL (Normal) H Labs and/or images reviewed: Labs reviewed by me Assessment/Plan Assessment/Plan Acute ischemic stroke Multifocal atherosclerotic narrowing of intracranial vasculature Hypertensive emergency 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 We will keep his systolic blood pressure above 150. Neuro consultation. Physical therapy evaluation. Start him on clear liquid diet. Further clinical management per clinical course. Discussed with the nurse regarding care plan. Plan discussed with: Patient, Other Problem List: (1) TIA (transient ischemic attack) (2) Hypertensive emergency Date of Service: Oct 19, 2025 Billing Provider: THEO ORNELAS MD Common Visit Codes: [id number] INP/OBS CARE(MOD) THEO ONRELAS MD Oct 19, 2025 17:32
[2025-10-19] MEDS ORDERED: hydrALAZINE HCL 20 MG/ML VL IV PRN (17:45)
[2025-10-19] MEDS: cloNIDine 0.1 mg/24hr 7 DAY PATCH TD SCH ×2 (17:59→21:45)
[2025-10-19] MEDS: InsuLIN REG 1unit/0.01ml Soln (100units/ml) ONE (18:30)
[2025-10-19] MEDS: ATORVASTATIN 20 MG TAB PO SCH (21:37)
[2025-10-19] MEDS ORDERED: ATORVASTATIN 20 MG TAB PO SCH (22:00)
[2025-10-20] VITALS (14 sets, daily range): BP systolic 103–251; BP diastolic 61–145; PULSE 55–99; RESP 10–21; TEMP 98.3–98.7; O2SAT 88–100
[2025-10-20] MEDS: ACCU-CHEK COMFORT CURVE STRIP VI SCH
[2025-10-20] MEDS: InsuLIN REG 1unit/0.01ml Soln (100units/ml) SC SCH
[2025-10-20] MEDS ORDERED: ASPirin-EC 325mg tab PO SCH (10:00)
[2025-10-20] MEDS: ENOXAPARIN SOD 40 MG/0.4 ML SYRINGE SC SCH (10:02)
[2025-10-20] MEDS: PANTOPRAZOLE 40 MG/10 ML VIAL INJ IV SCH (10:02)
[2025-10-20] MEDS: ASPirin-EC 325mg tab PO SCH (10:02)
--- NOTE | 2025-10-20 10:08 | ECG ---
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
--- NOTE | 2025-10-20 15:31 | DVHPN2 ---
Subjective This is a follow up on acute CVA with the right-sided deficit wishes currently improving. Patient has refused MRI twice. 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 Medications Current Medications Medications Dose Ordered Sig/Christina Route Start Time Stop Time Status Last Admin Dose Admin Atorvastatin Calcium 40 mg HS PO 10/19/25 22:00 10/19/25 21:37 40 MG Pantoprazole Sodium 40 mg DAILY IV 10/20/25 10:00 10/20/25 10:02 40 MG Ondansetron HCl 4 mg Q6HPRN PRN IV 10/19/25 21:45 Acetaminophen 650 mg Q6HP PRN PO 10/19/25 21:45 Enoxaparin Sodium 40 mg DAILY SC 10/20/25 10:00 10/20/25 10:02 40 MG Diagnostic Test (Pha) 1 strip Q6HR 10/20/25 00:00 10/20/25 11:11 1 STRIP Insulin Human Regular Q6HR SC 10/20/25 00:00 10/20/25 11:11 4 UNITS Dextrose 50 ml UD PRN IV 10/19/25 21:45 Hydralazine HCl 10 mg Q6HP PRN IV 10/19/25 21:45 Clonidine HCl 0.1 mg Q7D TD 10/19/25 21:45 Clopidogrel Bisulfate 75 mg DAILY PO 10/21/25 10:00 UNV Amlodipine Besylate 5 mg BID PO 10/20/25 22:00 UNV Atorvastatin Calcium 40 mg HS PO 10/20/25 22:00 UNV Aspirin 81 mg DAILY PO 10/21/25 10:00 UNV Laboratory Results Laboratory Tests 10/19/25 10:09 Urinalysis Test 10/18/25 16:20 Urine Color Light-yellow (Yellow) Urine Clarity Clear (Clear) Urine pH 5.0 (5.0-9.0) Urine Specific [place] 1.032 (1.001-1.035) Urine Protein Negative (Negative) Urine Ketones Negative (Negative) Urine Blood Negative /uL (Negative) Urine Nitrite Negative (Negative) Urine Bilirubin Negative (Negative) Urine Urobilinogen Normal mg/dL (Negative) Urine Leukocyte Esterase Negative /uL (Negative) Urine RBC None seen /hpf (0 - 3) Urine Microscopic WBC 1 /HPF (0-3) Urine Squamous Epithelial Cells None seen /hpf (<5) Urine Bacteria None seen /hpf (None Seen) Urine Glucose 4+ mg/dL (Normal) H Assessment/Plan Assessment/Plan 55-year-old male with a known history of hypertension, dyslipidemia, previous history of CVA currently on aspirin Plavix, ran out of those medication few days ago presented to the hospital with a dizziness found to have high blood pressure at191/123, received clonidine in the ER blood pressure dropped to 160/120. Following the reduced blood pressure patient's started developed slurred speech right-sided weakness found to have 1. Acute ischemic stroke with a right-sided deficit currently improving, as per Neurology patient is not a candidate for IV thrombolysis or no intra arterial intervention because of no large vessel occlusion 2. Hypertensive emergency, currently improving 3. Dyslipidemia 4. Acute kidney injury suspected secondary to vasomotor nephropathy 5. Noncompliance -0 a continue aspirin Plavix, statin, follow up of Neurology recommendations. PT evaluation and treatment, discharge plan. Plan discussed with: Patient My Orders Orders - LIZZ CARTAGENA MD Procedure Category Date Status Time Clopidogrel Bisulfate PHA 10/21/25 Logged (Plavix) 10:00 Amlodipine Tablet PHA 10/20/25 Logged (Norvasc Tablet) 22:00 Atorvastatin (Lipitor) PHA 10/20/25 Logged 22:00 Aspirin Enteric PHA 10/21/25 Logged Coated Tablet 10:00 Problem List: (1) Hypertensive emergency Date of Service: Oct 20, 2025 Billing Provider: LIZZ CARTAGENA MD Common Visit Codes: [id number] INP/OBS CARE(HIGH) LIZZ CARTAGENA MD Oct 20, 2025 15:31
[2025-10-20] MEDS: CLOPIDOGREL BISULFATE 75 MG TAB PO SCH (16:00)
--- NOTE | 2025-10-20 16:15 | DVH ---
CLINICAL HISTORY: CVA, mutlifocal stenosis in CTA TECHNIQUE: Routine multiplanar imaging of the brain was performed without gadolinium contrast. COMPARISON: CT ANGIO HEAD/NECK on DOS: 10/18/25, CT HEAD WITHOUT CONTRAST on DOS: 10/18/25 FINDINGS: Evaluation is limited due to image degradation secondary to patient motion There is a small acute infarct with numerous foci of restricted diffusion involving the posterior left internal capsule, coronal radiata, and anteromedial temporal lobe. There is a 2 mm acute left paramedian pontine infarct. Scattered T2 hyperintense foci within the white matter both cerebral hemispheres is most compatible with a mild burden of nonspecific chronic ischemic change. there is a old left paramedian pontine infarct. There is no evidence for mass, mass effect, or extra-axial fluid collection. There is no hydrocephalus or midline shift. The cerebral sulci and subarachnoid cisterns are not effaced. The imaged paranasal sinuses are clear. The globes are intact. The midline structures, including the corpus callosum, are unremarkable. The intracranial flow voids are maintained. IMPRESSION: Small acute infarct with numerous restricted foci of restricted diffusion involving the posterior limb of the left internal capsule , coronal radiata, and anteromedial temporal lobe. 2 mm acute left paramedian pontine infarct. Mild chronic small vessel ischemic change. 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
--- NOTE | 2025-10-20 17:16 | DVHINCON2 ---
Date Seen: Oct 20, 2025 Referring Physician MD Rodeny Reason for Consultation Acute CVA History of Present Illness This is a 55-year-old man who presented to the emergency room with a chief complaint of dizziness 30 minutes prior to arrival. The patient with complaints of dizziness associated visual disturbances and hypertension with a systolic blood pressure in the 190s mmHg. He has been diagnosed with an acute ischemic cerebrovascular accident. Cardiology consulted to rule out cardioembolic source. The patient denies underwent a previous transesophageal echocardiogram and denies a history of cardiac arrhythmias. Significant medical history includes multiple CVAs (on DAPT), peripheral arterial disease with a moderate right ICA stenosis, hypertension, dyslipidemia, and obesity. Past Medical History Past medical history reviewed. No other significant than mentioned above. Past Surgical History Past surgical history reviewed. No other significant than mentioned above. Family History: Patient's mother is Family History Family history reviewed. Social History Denies the use of illicit drugs or tobacco use. Admits to alcohol use. Allergies: Coded Allergies: NO KNOWN ALLERGIES (Unverified , 10/18/25) Home Meds Reported Medications Amlodipine Besylate (Amlodipine Besylate) 5 Mg Tab, 1 TAB PO BID, #30 TAB 5 Refills 10/19/25 Losartan Potassium (Losartan Potassium) 25 Mg Tab, 1 TAB PO BID, #90 TAB 1 Refill 10/19/25 Hydrochlorothiazide (Hydrochlorothiazide) 12.5 Mg Cap, 1 CAP PO DAILY, #30 CAP 5 Refills 10/19/25 Atorvastatin Calcium (Lipitor) 40 Mg Tab, 1 TAB PO DAILY, #30 TAB 5 Refills 10/19/25 Clopidogrel Bisulfate (CLOPIDOGREL) 75 Mg Tab, 1 TAB PO DAILY, #90 TAB 1 Refill 10/19/25 Aspirin (Aspir-81) 81 Mg Tab, 1 TAB PO DAILY, #30 TAB 5 Refills 10/19/25 Home Meds Home medications reviewed. Current Medications Current Medications Medications (Trade) Dose Ordered Sig/Christina Route PRN Reason Start Time Stop Time Status Last Admin Atorvastatin Calcium (Lipitor) 40 mg HS PO 10/19/25 22:00 10/19/25 21:22 DC Aspirin (Ecotrin Enteric Coated Tablet) 325 mg DAILY PO 10/20/25 10:00 10/19/25 21:23 DC Hydralazine HCl (Apresoline Injection) 10 mg Q6HP PRN IV SBP>150 10/19/25 17:45 10/19/25 21:34 DC Clonidine HCl (Aidfrhji-Pei-3 7DAY Patch) 0.1 mg Q7D TD 10/19/25 17:45 10/19/25 21:34 DC 10/19/25 17:59 Atorvastatin Calcium (Lipitor) 40 mg HS PO 10/19/25 22:00 10/20/25 15:31 DC 10/19/25 21:37 Aspirin (Ecotrin Enteric Coated Tablet) 325 mg DAILY PO 10/20/25 10:00 10/20/25 15:22 DC 10/20/25 10:02 Pantoprazole Sodium (Protonix) 40 mg DAILY IV 10/20/25 10:00 10/20/25 10:02 Ondansetron HCl (Zofran) 4 mg Q6HPRN PRN IV NAUSEA / VOMITING 10/19/25 21:45 Acetaminophen (Tylenol Tablet) 650 mg Q6HP PRN PO PAIN SCALE 1-3 OR TEMP>100.4 10/19/25 21:45 Enoxaparin Sodium (Lovenox) 40 mg DAILY SC 10/20/25 10:00 10/20/25 10:02 Diagnostic Test (Pha) (Accu-Chek Comfort Curve T) 1 strip Q6HR 10/20/25 00:00 10/20/25 17:10 Insulin Human Regular (InsuLIN R) Q6HR SC 10/20/25 00:00 10/20/25 11:11 Dextrose 50 ml UD PRN IV Blood Sugar LESS THAN 60 10/19/25 21:45 Hydralazine HCl (Apresoline Injection) 10 mg Q6HP PRN IV SBP>150 10/19/25 21:45 Clonidine HCl (Kjeoaqil-Jji-4 7DAY Patch) 0.1 mg Q7D TD 10/19/25 21:45 Clopidogrel Bisulfate (Plavix) 75 mg DAILY PO 10/21/25 10:00 10/20/25 15:54 DC Amlodipine Besylate (Norvasc Tablet) 5 mg BID PO 10/20/25 22:00 Atorvastatin Calcium (Lipitor) 40 mg HS PO 10/20/25 22:00 Aspirin (Ecotrin Enteric Coated Tablet) 81 mg DAILY PO 10/21/25 10:00 Clopidogrel Bisulfate (Plavix) 75 mg DAILY PO 10/20/25 16:00 Review of Systems Constitutional: No symptom reported Ears, Nose, & Throat: No symptom reported Eyes: No symptom reported Neurological: Dizziness, visual disturbances Pulmonary/Respiratory: No symptom reported Cardiovascular: No symptom reported Gastrointestinal: No symptom reported Genitourinary: No symptom reported Musculoskeletal: No symptom reported Skin: No symptom reported Psychiatric: No symptom reported Endocrine: No symptom reported Hemotologic/Lymphatic: No symptom reported Vital Signs Vital Signs Date Time Temp Pulse Resp B/P (MAP) Pulse Ox O2 Delivery O2 Flow Rate FiO2 10/20/25 15:00 74 159/90 (113) 98 10/20/25 13:00 98.3 21 98.3 10/20/25 08:00 Room Air* 0 21 Physical Exam General Appearance: Cooperative. Well developed. Obese. In no acute distress Head Exam: Normal inspection Neck Exam: Normal inspection. Non-tender. Normal alignment Pulmonary/Respiratory: Chest non-tender. Clear bilateral breath sounds Cardiovascular/Chest: Regular rate and rhythm. S1, S2. NSR. No murmurs. No JVD. Peripheral Pulses: 2+ Radial (R). 2+ Radial (L). 2+ Pedal (R). 2+ Pedal (L) Abdominal Exam: Normal bowel sounds. Soft. Nontender. No hepatospenomegaly. No masses Ankle Exam: Negative ankle edema Lower extremities: Negative lower extremity edema Neuro/Mental Status: A&O x4. Dysarthria Thoughts/Psych: Normal thought pattern. Appropriate mood and affect. Good judgement and insight Appearance: In no acute distress Skin Exam: Normal inspection. Normal color. Warm. Dry Labs/Diagnostic Data Labs Test 10/20/25 11:06 10/19/25 10:09 10/18/25 16:20 10/18/25 15:34 Range/Units POC Glucose 233 H 70-106 mg/dl White Blood Count 6.6 4.4-10.8 10^3/uL Red Blood Count 4.96 4.5-5.90 10^6/uL Hemoglobin 13.5 13.5-17.5 g/dL Hematocrit 40.8 L 41.0-53.0 % Mean Corpuscular Volume 82.2 80.0-100.0 fL Mean Corpuscular Hemoglobin 27.2 L 28.0-32.0 pg Mean Corpuscular Hemoglobin Concent 33.1 32.0-36.0 g/dL Red Cell Distribution Width 13.9 11.8-14.3 % Platelet Count 403 140-450 10^3/uL Mean Platelet Volume 8.0 6.9-10.8 fL Neutrophils (%) (Auto) 65.1 37.0-80.0 % Lymphocytes (%) (Auto) 23.8 10.0-50.0 % Monocytes (%) (Auto) 6.6 0.0-12.0 % Eosinophils (%) (Auto) 3.8 0.0-7.0 % Basophils (%) (Auto) 0.7 0.0-2.0 % Neutrophils # (Auto) 4.3 1.6-8.6 10 ^3/uL Lymphocytes # (Auto) 1.6 0.4-5.4 10 ^3/uL Monocytes # (Auto) 0.4 0-1.3 10 ^3/uL Eosinophils # (Auto) 0.3 0-0.8 10 ^3/uL Basophils # (Auto) 0 0-0.2 10 ^3/uL Nucleated Red Blood Cells 0.1 % Sodium Level 140 136-145 mmol/L Potassium Level 3.9 3.5-5.1 mmol/L Chloride Level 104 98-107 mmol/L Carbon Dioxide Level 26 20-31 mmol/L Anion Gap 10 5-15 Blood Urea Nitrogen 17 9-23 mg/dL Creatinine 1.34 H 0.700-1.30 mg/dL Glomerular Filtration Rate Calc 62 >90 mL/min BUN/Creatinine Ratio 12.7 10.0-20.0 Serum Glucose 149 #H 74-106 mg/dL Hemoglobin A1c 7.8 H <5.7 % A1C Calcium Level 9.7 8.7-10.4 mg/dL Triglycerides Level 228 H < 150 mg/dL Cholesterol Level 263 H < 200 mg/dL LDL Cholesterol 192 H < 100 mg/dL HDL Cholesterol 41 40-59 mg/dL Urine Color Light-yellow Yellow Urine Clarity Clear Clear Urine pH 5.0 5.0-9.0 Urine Specific [place] 1.032 1.001-1.035 Urine Protein Negative Negative Urine Ketones Negative Negative Urine Blood Negative Negative /uL Urine Nitrite Negative Negative Urine Bilirubin Negative Negative Urine Urobilinogen Normal Negative mg/dL Urine Leukocyte Esterase Negative Negative /uL Urine RBC None seen 0 - 3 /hpf Urine Microscopic WBC 1 0-3 /HPF Urine Squamous Epithelial Cells None seen <5 /hpf Urine Bacteria None seen None Seen /hpf Urine Glucose 4+ H Normal mg/dL Urine Opiates Screen Neg NEGATIVE Urine Fentanyl Screen Neg NEGATIVE Urine Barbiturates Screen Neg NEGATIVE Urine Phencyclidine Screen Neg NEGATIVE Urine Amphetamines Screen Neg NEGATIVE Urine Benzodiazepines Screen Neg NEGATIVE Urine Cocaine Screen Neg NEGATIVE Urine Cannabinoids Screen Neg NEGATIVE Total Bilirubin 0.4 0.2-1.0 mg/dL Direct Bilirubin < 0.1 <0.3 mg/dL Aspartate Amino Transferase (AST) 20 13-40 U/L Alanine Aminotransferase (ALT) 39 7-40 U/L Alkaline Phosphatase 98 46-116 U/L Troponin I High Sensitivity 16 </=54 ng/L Total Protein 7.5 5.7-8.2 g/dL Albumin 4.8 3.2-4.8 g/dL Assessment Acute ischemic stroke with associated dysarthria Rule out tachyarrhythmias/cardioembolic source History of recent CVA on DAPT PAD with moderate right ICA stenosis Hypertensive urgency Diabetes mellitus, newly diagnosed Dyslipidemia Obesity Plan/Recommendation (Dr. Reveles) Scheduled for a transesophageal echocardiogram at first available. All risks and benefits of the procedure were discussed with the patient who agrees to proceed with intervention. All questions answered. In the meantime, upgrade to telemetry and monitor for tachyarrhythmias. The patient can benefit from an outpatient event monitor as well. Continue antiplatelet therapy and lipid lowering agent given moderate right ICA stenosis. In the setting of an unremarkable ANN MARIE and no cardiac arrhythmias during admission, there is no further cardiac workup indicated at this time. Kindly call if in need of further recommendations. Thank you for allowing us to participate in this patient's care. This medical document was created using an electronic medical record system with voice recognition software and computerized dictation system. Although this document has been carefully reviewed, there might still be some phonetic and typographical errors. Occasional wrong-word or ``sound-alike substitutions may have occurred due to the inherent limitations of voice recognition software. These areas are purely typographical due to imperfections of the software programs and do not reflect any compromise in the patient's medical care. Please read the chart carefully and recognize, using context, where these substitutions have occurred. Plan discussed with: Patient, Other NYHA Physical activity limitations: NA Date of Service: Oct 20, 2025 Billing Provider: OMAR BABIN Cardiology Common Codes: [id number] INP/OBS CARE (High) OMAR BABIN Oct 20, 2025 17:16
[2025-10-20] MEDS: LIDOCAINE VISCOUS 2% 15ML UD MT ONE (18:36)
[2025-10-20] MEDS: MIDAZOLAM HCL 2MG/2ML 2ml VIAL (1mg/ml) IV ONE (18:37)
[2025-10-20] MEDS: fentaNYL CITRATE 100 MCG/2 ML VL IV ONE (18:39)
--- NOTE | 2025-10-20 19:44 | DVHOP ---
DATE OF SURGERY: 10/19/2025 TECHNIQUE PERFORMED: * Transesophageal echocardiography. * Management of conscious sedation. * Bubble study. ASSISTANTS: Assisted by our staff over here. INDICATIONS: cleared on 10/20 and indicates intracavitary mass, thrombosis or vegetation. DESCRIPTION OF PROCEDURE: The risks and benefits discussed in a standard manner. Patient was kept NPO. Patient was given IV Versed and fentanyl in a standard manner. Mouthpiece was placed. The patient also gargled with lidocaine. Mouthpiece was placed smoothly. Now, we passed a transesophageal probe very smoothly. We obtained views of the left ventricle, right ventricle, left and right atria. Mitral, tricuspid, pulmonary and aortic valve evaluated. Atrial appendage was evaluated. Bubble study was done. Study completed. COMPLICATIONS: There were no complications. IMPRESSION: * The left ventricle is moderately dilated and global hypokinesis noted. Ejection fraction in the range of 40%. * Moderately dilated left atrium. * Normal right atrium. * Normal mitral, tricuspid, pulmonary artery valve. There was no pericardial effusion. * Atrial appendage is also normal. CONCLUSION: * The study has revealed the low ejection fraction of 40% and global left ventricular hypokinesis. * However, no mass, no thrombus, no vegetation. * Normal mitral, tricuspid, pulmonary artery valve. * Atrial appendage normal. * Bubble study is negative. * Mild mitral valve regurgitation. Harshad Reveles MD MP/ALCIRA TID: [id number] RECEIPT: [id number] MTDKatherine
--- NOTE | 2025-10-20 20:26 | DVHINCON2 ---
Date Seen: Oct 20, 2025 Referring Physician MD Rodney Reason for Consultation Acute CVA History of Present Illness This is a 55-year-old mal with a PMH of multiple CVAs (on DAPT), peripheral arterial disease with a moderate right ICA stenosis, hypertension, dyslipidemia, and obesity who presented to the emergency room with a chief complaint of dizziness 30 minutes prior to arrival. The patient with complaints of dizziness associated visual disturbances and hypertension with a systolic blood pressure in the 190s mmHg. He has been diagnosed with an acute ischemic cerebrovascular accident. Cardiology consulted to rule out cardioembolic source. The patient denies underwent a previous transesophageal echocardiogram and denies a history of cardiac arrhythmias. Past Medical History Past medical history reviewed. No other significant than mentioned above. Past Surgical History Past surgical history reviewed. No other significant than mentioned above. Family History: Patient's mother is Allergies: Coded Allergies: NO KNOWN ALLERGIES (Unverified , 10/18/25) Home Meds Reported Medications Amlodipine Besylate (Amlodipine Besylate) 5 Mg Tab, 1 TAB PO BID, #30 TAB 5 Refills 10/19/25 Losartan Potassium (Losartan Potassium) 25 Mg Tab, 1 TAB PO BID, #90 TAB 1 Refill 10/19/25 Hydrochlorothiazide (Hydrochlorothiazide) 12.5 Mg Cap, 1 CAP PO DAILY, #30 CAP 5 Refills 10/19/25 Atorvastatin Calcium (Lipitor) 40 Mg Tab, 1 TAB PO DAILY, #30 TAB 5 Refills 10/19/25 Clopidogrel Bisulfate (CLOPIDOGREL) 75 Mg Tab, 1 TAB PO DAILY, #90 TAB 1 Refill 10/19/25 Aspirin (Aspir-81) 81 Mg Tab, 1 TAB PO DAILY, #30 TAB 5 Refills 10/19/25 Current Medications Current Medications Medications (Trade) Dose Ordered Sig/Christina Route PRN Reason Start Time Stop Time Status Last Admin Atorvastatin Calcium (Lipitor) 40 mg HS PO 10/19/25 22:00 10/19/25 21:22 DC Aspirin (Ecotrin Enteric Coated Tablet) 325 mg DAILY PO 10/20/25 10:00 10/19/25 21:23 DC Atorvastatin Calcium (Lipitor) 40 mg HS PO 10/19/25 22:00 10/20/25 15:31 DC 10/19/25 21:37 Aspirin (Ecotrin Enteric Coated Tablet) 325 mg DAILY PO 10/20/25 10:00 10/20/25 15:22 DC 10/20/25 10:02 Pantoprazole Sodium (Protonix) 40 mg DAILY IV 10/20/25 10:00 10/20/25 10:02 Ondansetron HCl (Zofran) 4 mg Q6HPRN PRN IV NAUSEA / VOMITING 10/19/25 21:45 Acetaminophen (Tylenol Tablet) 650 mg Q6HP PRN PO PAIN SCALE 1-3 OR TEMP>100.4 10/19/25 21:45 Enoxaparin Sodium (Lovenox) 40 mg DAILY SC 10/20/25 10:00 10/20/25 10:02 Diagnostic Test (Pha) (Accu-Chek Comfort Curve T) 1 strip Q6HR 10/20/25 00:00 10/20/25 17:10 Insulin Human Regular (InsuLIN R) Q6HR SC 10/20/25 00:00 10/20/25 11:11 Dextrose 50 ml UD PRN IV Blood Sugar LESS THAN 60 10/19/25 21:45 Hydralazine HCl (Apresoline Injection) 10 mg Q6HP PRN IV SBP>150 10/19/25 21:45 Clonidine HCl (Alkpciqu-Zkt-2 7DAY Patch) 0.1 mg Q7D TD 10/19/25 21:45 Clopidogrel Bisulfate (Plavix) 75 mg DAILY PO 10/21/25 10:00 10/20/25 15:54 DC Amlodipine Besylate (Norvasc Tablet) 5 mg BID PO 10/20/25 22:00 Atorvastatin Calcium (Lipitor) 40 mg HS PO 10/20/25 22:00 Aspirin (Ecotrin Enteric Coated Tablet) 81 mg DAILY PO 10/21/25 10:00 Clopidogrel Bisulfate (Plavix) 75 mg DAILY PO 10/20/25 16:00 Review of Systems Constitutional: No symptom reported Ears, Nose, & Throat: No symptom reported Eyes: No symptom reported Neurological: Dizziness, visual disturbances Pulmonary/Respiratory: No symptom reported Cardiovascular: No symptom reported Gastrointestinal: No symptom reported Genitourinary: No symptom reported Musculoskeletal: No symptom reported Skin: No symptom reported Psychiatric: No symptom reported Endocrine: No symptom reported Hemotologic/Lymphatic: No symptom reported Vital Signs Vital Signs Date Time Temp Pulse Resp B/P (MAP) Pulse Ox O2 Delivery O2 Flow Rate FiO2 10/20/25 20:00 92 16 Room Air* 0 21 10/20/25 15:00 159/90 (113) 98 10/20/25 13:00 98.3 98.3 Physical Exam GENERAL: Alert and oriented x 3. No acute distress. Obese. EYES: PERRL, EOMI. Anicteric. HENT: Moist mucous membranes. LUNGS: Clear to auscultation bilaterally. CARDIOVASCULAR: Regular rate and rhythm. ABDOMEN: Soft, non-tender and non-distended. EXTREMITIES: No edema. NEUROLOGIC: No focal neurological deficits. SKIN: Warm, dry. Labs/Diagnostic Data Labs Test 10/20/25 16:54 10/19/25 10:09 10/18/25 16:20 10/18/25 15:34 Range/Units POC Glucose 96 70-106 mg/dl White Blood Count 6.6 4.4-10.8 10^3/uL Red Blood Count 4.96 4.5-5.90 10^6/uL Hemoglobin 13.5 13.5-17.5 g/dL Hematocrit 40.8 L 41.0-53.0 % Mean Corpuscular Volume 82.2 80.0-100.0 fL Mean Corpuscular Hemoglobin 27.2 L 28.0-32.0 pg Mean Corpuscular Hemoglobin Concent 33.1 32.0-36.0 g/dL Red Cell Distribution Width 13.9 11.8-14.3 % Platelet Count 403 140-450 10^3/uL Mean Platelet Volume 8.0 6.9-10.8 fL Neutrophils (%) (Auto) 65.1 37.0-80.0 % Lymphocytes (%) (Auto) 23.8 10.0-50.0 % Monocytes (%) (Auto) 6.6 0.0-12.0 % Eosinophils (%) (Auto) 3.8 0.0-7.0 % Basophils (%) (Auto) 0.7 0.0-2.0 % Neutrophils # (Auto) 4.3 1.6-8.6 10 ^3/uL Lymphocytes # (Auto) 1.6 0.4-5.4 10 ^3/uL Monocytes # (Auto) 0.4 0-1.3 10 ^3/uL Eosinophils # (Auto) 0.3 0-0.8 10 ^3/uL Basophils # (Auto) 0 0-0.2 10 ^3/uL Nucleated Red Blood Cells 0.1 % Sodium Level 140 136-145 mmol/L Potassium Level 3.9 3.5-5.1 mmol/L Chloride Level 104 98-107 mmol/L Carbon Dioxide Level 26 20-31 mmol/L Anion Gap 10 5-15 Blood Urea Nitrogen 17 9-23 mg/dL Creatinine 1.34 H 0.700-1.30 mg/dL Glomerular Filtration Rate Calc 62 >90 mL/min BUN/Creatinine Ratio 12.7 10.0-20.0 Serum Glucose 149 #H 74-106 mg/dL Hemoglobin A1c 7.8 H <5.7 % A1C Calcium Level 9.7 8.7-10.4 mg/dL Triglycerides Level 228 H < 150 mg/dL Cholesterol Level 263 H < 200 mg/dL LDL Cholesterol 192 H < 100 mg/dL HDL Cholesterol 41 40-59 mg/dL Urine Color Light-yellow Yellow Urine Clarity Clear Clear Urine pH 5.0 5.0-9.0 Urine Specific [place] 1.032 1.001-1.035 Urine Protein Negative Negative Urine Ketones Negative Negative Urine Blood Negative Negative /uL Urine Nitrite Negative Negative Urine Bilirubin Negative Negative Urine Urobilinogen Normal Negative mg/dL Urine Leukocyte Esterase Negative Negative /uL Urine RBC None seen 0 - 3 /hpf Urine Microscopic WBC 1 0-3 /HPF Urine Squamous Epithelial Cells None seen <5 /hpf Urine Bacteria None seen None Seen /hpf Urine Glucose 4+ H Normal mg/dL Urine Opiates Screen Neg NEGATIVE Urine Fentanyl Screen Neg NEGATIVE Urine Barbiturates Screen Neg NEGATIVE Urine Phencyclidine Screen Neg NEGATIVE Urine Amphetamines Screen Neg NEGATIVE Urine Benzodiazepines Screen Neg NEGATIVE Urine Cocaine Screen Neg NEGATIVE Urine Cannabinoids Screen Neg NEGATIVE Total Bilirubin 0.4 0.2-1.0 mg/dL Direct Bilirubin < 0.1 <0.3 mg/dL Aspartate Amino Transferase (AST) 20 13-40 U/L Alanine Aminotransferase (ALT) 39 7-40 U/L Alkaline Phosphatase 98 46-116 U/L Troponin I High Sensitivity 16 </=54 ng/L Total Protein 7.5 5.7-8.2 g/dL Albumin 4.8 3.2-4.8 g/dL Assessment Acute ischemic stroke with associated dysarthria. Rule out tachyarrhythmias/cardioembolic source. History of recent CVA on DAPT. PAD with moderate right ICA stenosis. Hypertensive urgency. Diabetes mellitus, newly diagnosed. Dyslipidemia. Obesity. Plan/Recommendation I agree with your ongoing assessment and care of plan. Patient has been seen by Svetlana Augustin NP on my behalf. We have discussed the plan with the patient. Scheduled for a transesophageal echocardiogram at first available. All risks and benefits of the procedure were discussed with the patient who agrees to proceed with intervention. All questions answered. In the meantime, upgrade to telemetry and monitor for tachyarrhythmias. The patient can benefit from an outpatient event monitor as well. Continue antiplatelet therapy and lipid lowering agent given moderate right ICA stenosis. In the setting of an unremarkable ANN MARIE and no cardiac arrhythmias during admission, there is no further cardiac workup indicated at this time. Additional plan as per the hospital course. Plan discussed with: Patient NYHA Physical activity limitations: NA Date of Service: Oct 20, 2025 Billing Provider: FOREIGN PEREZ MD Cardiology Common Codes: 06474-[id number] INP/OBS CARE (High) Cardiology Consultation Codes: [id number] CONSULT <45MIN FOREIGN PEREZ MD Oct 20, 2025 20:26
[2025-10-20] MEDS: ATORVASTATIN 20 MG TAB PO SCH (22:07)
[2025-10-21 01:00] VITALS: BP 122/83; PULSE 97; RESP 17; TEMP 97.9; O2SAT 98
[2025-10-21 05:00] VITALS: BP 163/106; PULSE 84; RESP 17; TEMP 97.6; O2SAT 96
[2025-10-21] MEDS: hydrALAZINE HCL 20 MG/ML VL IV PRN (06:13)
[2025-10-21 09:00] VITALS: BP 184/129; PULSE 104; RESP 19; TEMP 97.8; O2SAT 96
[2025-10-21] MEDS ORDERED: CLOPIDOGREL BISULFATE 75 MG TAB PO SCH (10:00)
[2025-10-21] MEDS: ASPirin-EC 81 mg tab PO SCH (10:20)
[2025-10-21 13:00] VITALS: BP 152/92; PULSE 92; RESP 19; TEMP 97.7; O2SAT 96
--- NOTE | 2025-10-21 16:21 | BSKYNEURO ---
[facility] Note # Demographics Consult Type: Follow-Up Phone Call Patient Location: Inpatient First Name: TEENA Last Name: CASEY Date of : 1970 Age: 55 Gender: Male Facility: [facility] Time of Initial Page (): 10/21/2025 15:27 First Contact with Site (): 10/21/2025 15:28 # HPI History: 55 y/o M w/stroke 1 month ago (on DAPT but ran out 3-4 days ago) who presented on 10/18/25 with an episode of dizziness. His blood pressure was si gnificantly elevated at 191/123 mmHg on presentation. After receiving clonidine in the emergency department, his blood pressure decreased to 160/120 mmHg. Following the blood pressure reduction, the patient developed right-sided weakness and slurred speech that were not present on initial presentation. # Data Time Head CT personally read by me (): 10/21/2025 15:[address]: - per radiologist read Time CTA personally reviewed by me (): 10/21/2025 15:31 CTA Head: - per radiologist read multifocal severe stenosis of basilar artery, severe stenosis of the distal left M1 segment of the middle cerebral artery, severe stenosis of the left P1 segment of the posterior cerebral artery, multifocal atherosclerotic narrowing of the intracranial vasculature CTA Neck: - per radiologist read moderate stenosis (approximately 60%) in the right proximal internal carotid artery. MRI: acute ischemia Other Imaging: ANN MARIE: EF 40% # Assessment Impression: - Ischemic Stroke (Subacute) [place] stroke --> severe basilar athero. Left temporal and thalamic strokes --> severe left posterior cerebral artery athero. Left internal capsule and basal ganglia strokes --> severe left middle cerebral artery strokes. All strokes likely from atherosclerosis. He should be on SAMMPRIS dosing of antiplatelets # Plan Thrombolytic/Intervention: NOT IV Thrombolysis or IA Intervention candidate Thrombolytic Exclusion: > 4.5 hours Target Blood Pressure: - SBP < 160 - DBP < 105 correction goal is 130/80 Medication: - aspirin 325 mg PO daily - clopidogrel (Plavix) 75 mg PO daily - start statin with goal of LDL < 70 Other: - If patient has any neurological deterioration please call me back immediately - LDL < 70 - I have discussed my recommendations with the referring provider - neurology referral as outpatient Disposition: continue admission # Logistics Attestation of consult completion: The patient is located at: [facility]. I performed this phone consultation from my offsite office Total time spent in telemedicine encounter: 5 minutes # Demographics First Name: TEENA Last Name: CASEY Facility: [facility] Yes KENJI ZIEGLER MD Oct 21, 2025 16:21
[2025-10-21 17:00] VITALS: BP 148/89; PULSE 85; RESP 18; TEMP 98.7; O2SAT 95
[2025-10-21] MEDS ORDERED: SITA50TA PO (18:36)
[2025-10-21] MEDS ORDERED: ATOR-507 PO (18:36)
[2025-10-21] MEDS ORDERED: CLOP75TA70 PO (18:36)
[2025-10-21] MEDS ORDERED: LOSA-533 PO (18:36)
[2025-10-21] MEDS ORDERED: HYDR12.59 PO (18:36)
[2025-10-21] MEDS ORDERED: AMLO1TAB22 PO (18:36)
[2025-10-21] MEDS ORDERED: METF-370 PO (18:36)
[2025-10-21] MEDS ORDERED: [UNRECOGNIZED DRUG - CODE] PO (18:55)
--- NOTE | 2025-10-21 18:59 | DVHDS2 ---
Discharge Summary Date of Admission Oct 18, 2025 at 21:27 Date of Discharge: Oct 21, 2025 Labs/Diagnostic Data: Laboratory Results Test 10/21/25 17:45 10/19/25 10:09 10/18/25 16:20 10/18/25 15:34 POC Glucose 118 mg/dl (70-106) White Blood Count 6.6 10^3/uL (4.4-10.8) Red Blood Count 4.96 10^6/uL (4.5-5.90) Hemoglobin 13.5 g/dL (13.5-17.5) Hematocrit 40.8 % (41.0-53.0) Mean Corpuscular Volume 82.2 fL (80.0-100.0) Mean Corpuscular Hemoglobin 27.2 pg (28.0-32.0) Mean Corpuscular Hemoglobin Concent 33.1 g/dL (32.0-36.0) Red Cell Distribution Width 13.9 % (11.8-14.3) Platelet Count 403 10^3/uL (140-450) Mean Platelet Volume 8.0 fL (6.9-10.8) Neutrophils (%) (Auto) 65.1 % (37.0-80.0) Lymphocytes (%) (Auto) 23.8 % (10.0-50.0) Monocytes (%) (Auto) 6.6 % (0.0-12.0) Eosinophils (%) (Auto) 3.8 % (0.0-7.0) Basophils (%) (Auto) 0.7 % (0.0-2.0) Neutrophils # (Auto) 4.3 10 ^3/uL (1.6-8.6) Lymphocytes # (Auto) 1.6 10 ^3/uL (0.4-5.4) Monocytes # (Auto) 0.4 10 ^3/uL (0-1.3) Eosinophils # (Auto) 0.3 10 ^3/uL (0-0.8) Basophils # (Auto) 0 10 ^3/uL (0-0.2) Nucleated Red Blood Cells 0.1 % Sodium Level 140 mmol/L (136-145) Potassium Level 3.9 mmol/L (3.5-5.1) Chloride Level 104 mmol/L (98-107) Carbon Dioxide Level 26 mmol/L (20-31) Anion Gap 10 (5-15) Blood Urea Nitrogen 17 mg/dL (9-23) Creatinine 1.34 mg/dL (0.700-1.30) Glomerular Filtration Rate Calc 62 mL/min (>90) BUN/Creatinine Ratio 12.7 (10.0-20.0) Serum Glucose 149 mg/dL (74-106) Hemoglobin A1c 7.8 % A1C (<5.7) Calcium Level 9.7 mg/dL (8.7-10.4) Triglycerides Level 228 mg/dL (< 150) Cholesterol Level 263 mg/dL (< 200) LDL Cholesterol 192 mg/dL (< 100) HDL Cholesterol 41 mg/dL (40-59) Urine Color Light-yellow (Yellow) Urine Clarity Clear (Clear) Urine pH 5.0 (5.0-9.0) Urine Specific [place] 1.032 (1.001-1.035) Urine Protein Negative (Negative) Urine Ketones Negative (Negative) Urine Blood Negative /uL (Negative) Urine Nitrite Negative (Negative) Urine Bilirubin Negative (Negative) Urine Urobilinogen Normal mg/dL (Negative) Urine Leukocyte Esterase Negative /uL (Negative) Urine RBC None seen /hpf (0 - 3) Urine Microscopic WBC 1 /HPF (0-3) Urine Squamous Epithelial Cells None seen /hpf (<5) Urine Bacteria None seen /hpf (None Seen) Urine Glucose 4+ mg/dL (Normal) Urine Opiates Screen Neg (NEGATIVE) Urine Fentanyl Screen Neg (NEGATIVE) Urine Barbiturates Screen Neg (NEGATIVE) Urine Phencyclidine Screen Neg (NEGATIVE) Urine Amphetamines Screen Neg (NEGATIVE) Urine Benzodiazepines Screen Neg (NEGATIVE) Urine Cocaine Screen Neg (NEGATIVE) Urine Cannabinoids Screen Neg (NEGATIVE) Total Bilirubin 0.4 mg/dL (0.2-1.0) Direct Bilirubin < 0.1 mg/dL (<0.3) Aspartate Amino Transferase (AST) 20 U/L (13-40) Alanine Aminotransferase (ALT) 39 U/L (7-40) Alkaline Phosphatase 98 U/L (46-116) Troponin I High Sensitivity 16 ng/L (</=54) Total Protein 7.5 g/dL (5.7-8.2) Albumin 4.8 g/dL (3.2-4.8) Other Laboratory Tests 10/19/25 10:09 Brief Hx & Hospital Course: 55-year-old male with a known history of hypertension, dyslipidemia, previous history of CVA currently on aspirin Plavix, ran out of those medication few days ago presented to the hospital with a dizziness found to have high blood pressure at191/123, received clonidine in the ER blood pressure dropped to 160/120. Following the reduced blood pressure patient's started developed slurred speech right-sided weakness found to have acute ischemic stroke with a right-sided deficit. Patient was seen by Cardiology as well as Neurology. Patient was resumed on aspirin and Plavix. Patient underwent ANN MARIE which shows no evidence of any vegetation. Patient is cleared by Neurology to be discharged on aspirin 325 and Plavix 75 daily. Patient is being discharged under stable condition. Patient was recommended to be with the home health but front wheel walker but patient's insurance did not approve it. f Condition at Discharge: Stable Final Diagnosis/Problems List 55-year-old male with a known history of hypertension, dyslipidemia, previous history of CVA currently on aspirin Plavix, ran out of those medication few days ago presented to the hospital with a dizziness found to have high blood pressure at191/123, received clonidine in the ER blood pressure dropped to 160/120. Following the reduced blood pressure patient's started developed slurred speech right-sided weakness found to have 1. Acute ischemic stroke with a right-sided deficit currently improving, as per Neurology patient is not a candidate for IV thrombolysis or no intra arterial intervention because of no large vessel occlusion 2. Hypertensive emergency, currently improving 3. Dyslipidemia 4. Acute kidney injury suspected secondary to vasomotor nephropathy 5. Noncompliance Discharge Disposition: Home SNF Discharge Will this Physician continue t: No Discharge Instruct/Medications Diet: Cardiac 2g Na,low cholest Diet comment: 1800 ADA diet Activity: No Restrictions, As Tolerated Follow Up/Referral: Please follow up with the PCP in one week Follow up with the Neurology in 1-2 weeks. New Medications: Metformin Hydrochloride (Metformin Hcl) 500 Mg Tab 1 TAB PO BID, #60 TAB 3 Refills Sitagliptin Phosphate (Januvia) 50 Mg Tab 1 TAB PO DAILY, #30 TAB 5 Refills Aspirin (Aspirin Regular Strength) 325 Mg Tab 325 MG PO DAILY, #30 TAB Continued Medications: Amlodipine Besylate (Amlodipine Besylate) 5 Mg Tab 1 TAB PO BID, #30 TAB 5 Refills (This prescription has been renewed) Atorvastatin Calcium (Lipitor) 40 Mg Tab 1 TAB PO DAILY, #30 TAB 5 Refills (This prescription has been renewed) Clopidogrel Bisulfate (Clopidogrel) 75 Mg Tab 1 TAB PO DAILY, #90 TAB 1 Refill (This prescription has been renewed) Hydrochlorothiazide (Hydrochlorothiazide) 12.5 Mg Cap 1 CAP PO DAILY, #30 CAP 5 Refills (This prescription has been renewed) Losartan Potassium (Losartan Potassium) 25 Mg Tab 1 TAB PO BID, #90 TAB 1 Refill (This prescription has been renewed) Discontinued Medications: Aspirin (Aspir-81) 81 Mg Tab 1 TAB PO DAILY, #30 TAB 5 Refills Scheduled Amlodipine Besylate (Amlodipine Besylate), 1 TAB PO BID Aspirin (Aspir-81), 1 TAB PO DAILY, (Reported) Aspirin (Aspirin Regular Strength), 325 MG PO DAILY Atorvastatin Calcium (Lipitor), 1 TAB PO DAILY Clopidogrel Bisulfate (Clopidogrel), 1 TAB PO DAILY Hydrochlorothiazide (Hydrochlorothiazide), 1 CAP PO DAILY Losartan Potassium (Losartan Potassium), 1 TAB PO BID Metformin Hydrochloride (Metformin Hcl), 1 TAB PO BID Sitagliptin Phosphate (Januvia), 1 TAB PO DAILY Discharge Statement: "Patient was advised to return to the ER or call 911 if any headaches, dizziness, shortness of breath, chest pain, abdominal pain, bleeding, fevers, or worsening of medical condition. Patient was counseled about treatment plan, medications, possible side effects, patientverbalized understanding. All questions were answered to the best of my ability. This discharge took greater then 30 minutes in planning, reviewing documentation, counseling the patient, and discussing with other team members." ASSESSMENT ASSESSMENT Assessment 55-year-old male with a known history of hypertension, dyslipidemia, previous history of CVA currently on aspirin Plavix, ran out of those medication few days ago presented to the hospital with a dizziness found to have high blood pressure at191/123, received clonidine in the ER blood pressure dropped to 160/120. Following the reduced blood pressure patient's started developed slurred speech right-sided weakness found to have 1. Acute ischemic stroke with a right-sided deficit currently improving, as per Neurology patient is not a candidate for IV thrombolysis or no intra arterial intervention because of no large vessel occlusion 2. Hypertensive emergency, currently improving 3. Dyslipidemia 4. Acute kidney injury suspected secondary to vasomotor nephropathy 5. Noncompliance Date of Service: Oct 21, 2025 Billing Provider: LIZZ CARTAGENA MD Common Visit Codes: 87136-RTY/OBS DISCH DAY >30min LIZZ CARTAGENA MD Oct 21, 2025 18:59
[2025-10-21 19:22] VITALS: BP 148/95; PULSE 84; RESP 16; TEMP 97.8; O2SAT 96
--- NOTE | 2025-10-22 00:13 | DVHPN2 ---
Progress Note - Dictate Date Seen: Oct 21, 2025 Medical Necessity Reason Pt with a Central, PICC or Fol: No Subjective Patient was seen and evaluated in follow up. Patient underwent transesophageal echocardiography with bubble study. The study has revealed the low ejection fraction of 40% and global left ventricular hypokinesis. However, no mass, no thrombus, no vegetation. Normal mitral, tricuspid, pulmonary artery valve. Atrial appendage normal. Bubble study is negative. Mild mitral valve regurgitation. Telemetry reviewed. vital signs Vital Sign Date Time Temp Pulse Resp B/P (MAP) Pulse Ox O2 Delivery O2 Flow Rate FiO2 10/21/25 20:00 Room Air* 0 21 10/21/25 19:22 97.8 84 16 96 10/21/25 17:00 148/89 (108) Total Intake and Output 10/20/25 10/20/25 10/21/25 15:00 23:00 07:00 Intake Total 200 ml 400 ml Output Total 350 ml 600 ml Balance -150 ml -200 ml objective GENERAL: Alert and oriented x 3. No acute distress. Obese. EYES: PERRL, EOMI. Anicteric. HENT: Moist mucous membranes. LUNGS: Clear to auscultation bilaterally. CARDIOVASCULAR: Regular rate and rhythm. ABDOMEN: Soft, non-tender and non-distended. EXTREMITIES: No edema. NEUROLOGIC: No focal neurological deficits. SKIN: Warm, dry. laboratory and microbiology Laboratory Tests 10/19/25 10:09 Test 10/19/25 10:09 Range/Units Serum Glucose 149 #H 74-106 mg/dL Problem List Acute ischemic stroke with associated dysarthria. Rule out tachyarrhythmias/cardioembolic source. History of recent CVA on DAPT. PAD with moderate right ICA stenosis. Hypertensive urgency. Diabetes mellitus, newly diagnosed. Dyslipidemia. Obesity. Assessment/Plan Continued all current supportive medical care. Aspirin, Lipitor, Plavix. Clonidine, Amlodipine. DVT and GI prophylactics. IV Hydralazine for SBP >160. Additional plan as per the hospital course. Plan discussed with: Patient FOREIGN PEREZ MD Oct 21, 2025 21:52
[2025-10-22] MEDS ORDERED: ASPirin-EC 325mg tab PO SCH (10:00)
== END 2025-10-21 20:37 | disposition home or self-care (01) | DRG 45 ==
LOC: ER 15:35 → OVERFLOW 21:27 → CENTRAL 10-19 04:20 → TELE-CENTR 10-20 17:20
PROVIDERS: ADMIT Internal Medicine; ATTEND Internal Medicine
PROC: B24BZZ4 Ultrasonography of Heart with Aorta, Transesophageal (ICD-10-PCS; principal; 2025-10-19)
DX: I63.9 Cerebral infarction, unspecified (principal); N17.0 Acute kidney failure with tubular necrosis; I16.1 Hypertensive emergency; E11.65 Type 2 diabetes mellitus with hyperglycemia; N18.9 Chronic kidney disease, unspecified; E66.9 Obesity, unspecified; I65.21 Occlusion and stenosis of right carotid artery; E78.5 Hyperlipidemia, unspecified; E11.22 Type 2 diabetes mellitus with diabetic chronic kidney disease; I12.9 Hypertensive chronic kidney disease with stage 1 through stage 4 chronic kidney disease, or unspecified chronic kidney disease; E11.51 Type 2 diabetes mellitus with diabetic peripheral angiopathy without gangrene; Z91.199 Patient's noncompliance with other medical treatment and regimen due to unspecified reason; Z79.82 Long term (current) use of aspirin; Z68.33 Body mass index [BMI] 33.0-33.9, adult
CPT/HCPCS: 36415; 70450; 70496; 70498; 70551; 80048; 80061; 80076; 80307; 81001; 82962; 83036; 84484; 85025; 93005; 93306; 93312; 96360; 97110; 97116; 97163; 97530; 99152; G0378; J1815; J2250; J2470